=== PATIENT | male | born 1980 | race Caucasian/White ===

== ENCOUNTER 2018-04-06 15:39 | Emergency (ER) | payer MEDICAID, SELFPAY ==
[2018-04-06 15:39] VITALS: BP 166/90; PULSE 104; RESP 16; TEMP 37.7; O2SAT 97; BMI 34.4
[2018-04-06] MEDS: 0.9% Normal Saline 1,000 ML 1000 ML IV (16:04)
[2018-04-06 16:15] LABS: Absolute Lymphocyte Count 2.24 X10^3/ul (0.83-4.51); Basophil# 0.02 X10^3/uL; Basophil% 0.2 % (0-1); Eosinophil# 0.06 X10^3/uL; Eosinophils% 0.5 % (0-5); Hematocrit 43.4 % (40-54); Hemoglobin 14.2 g/dl (13.0-16.5); Lymphocyte # 2.24 X10^3/ul (4.0); Lymphocyte % 20.3 % (19-41); Mean Corp Hgb Conc 32.7 g/gl (32-36); Mean Corpuscular Hgb 28.2 pg (27.0-32.0); Mean Corpuscular Volume 86.1 fL (80-94); Mean Platelet Vol. 10.8 fl (6.2-12.0); Monocyte# 0.74 X10^3/uL; Monocyte% 6.7 % (0-10); Neutrophil # 7.95 X10^3/uL (2.7-7.7); Platelet Count 256 K/mm3 (150-450); RBC Distribution Width CV 12.9 % (11.6-14.6); RBC Distribution Width SD 40.2 fl (35.1-43.9); Red Blood Count 5.04 M/mm3 (4.6-6.2)
[2018-04-06 16:16] LABS: POSITIVE COUNT NO; POSITIVE DIFFERENTIAL NO; POSITIVE MORPHOLOGY NO
[2018-04-06 16:39] LABS: AST(SGOT) 15 U/L (15-37); Alanine Aminotransfer ALT/SGPT 32 U/L (16-61); Albumin, Serum 3.9 g/dL (3.2-5.0); Alkaline Phosphatase 106 U/L (45-117); Anion Gap 10 (5-15); BUN 11 mg/dL (7-18); BUN/Creat Ratio 11.2 RATIO (10-20); Bilirubin, Direct 0.07 mg/dL (0.00-0.30); Calcium,Total 8.5 mg/dL (8.5-10.1); Chloride 109 mmol/L (98-107); Creatinine, Serum 0.98 mg/dL (0.70-1.30); EST Glomerular Filtration Rate 91 mL/min (>60); Est Glom Filt Rate - Afr Amer 110 mL/min (>60); Estimated Creatinine Clearance 96.49 ml/min; Glucose 110 mg/dL (74-106); Lipase 102 U/L (73-393); Potassium 3.7 mmol/L (3.5-5.1); Protein, Total 7.9 g/dL (6.4-8.2); Sodium Level 143 mmol/L (136-145); Thyroid Stim Hormone (TSH) 0.94 uIU/mL (0.358-3.74)
[2018-04-06] MEDS: hydrOXYzine PAM 25 MG Capsule 50 MG PO (17:02)
--- NOTE | 2018-04-06 17:24 | ED.DCSUM_ITS ---
- ER Visit Summary Date of Service: 04/06/18 Chief Complaint: Burning on left side History of Present Illness: The patient is a [address] Ng. He reports that for the past 2 months he has been having episodes where the left side of his chest and abdomen burn. States that this began again approximately 2 hours ago while he was undergoing light activity. Reports he feels mildly short of breath. He reports that left side of his face feels flushed as well. Patient reports that this is not related to exertion. The worst episode of this came after he had been playing volleyball and was at rest. He denies any exertional chest pain. Patient reports his abdominal pain is 5 out of 10 severity. He has had one episode of diarrhea. No nausea, vomiting. No fever or chills. No cough. Physical Examination: Vitals: Stable. Afebrile. General: Well-nourished and well-developed. Head: Normocephalic atraumatic. Neck: Supple, no lymphadenopathy. No JVD. Nontender. Cardiovascular: Regular rate and rhythm. No murmurs. Respiratory: No respiratory distress. Clear to auscultation bilaterally. Abdominal: Soft, nontender, nondistended, normal bowel sounds. No guarding, rebound, or peritoneal signs. Back: Nontender. Extremities: Nontender, no edema. Skin: Normal color, no rash. Neurologic: Alert and oriented ?3. Cranial nerves II through XII are intact. Normal strength and sensation. Psych: Normal affect. Test Results: EKG is sinus at 76 no acute changes. Troponins negative. LFTs are normal. Lipase normal. Chem-7 is more for chloride 109 and glucose 110. CBC is more for segment neutrophils 70. TSH 0.94. Chest x-ray is normal. Emergency Department Course and Treatment: Patient was treated with Vistaril. He is resting comfortably. Treatment Plan: This time I do not have an expiration for the patient's symptoms. However, I feel that he is a suitable candidate for further outpatient evaluation. He will be discharged instructions follow-up his primary care physician within the next week for further evaluation. Return to the emergency department for any worsening symptoms. Disposition: To home in improved and stable condition. Impression: 1. Atypical chest pain. This note was generated with [employer] software. It may contain incorrect words, spelling, and punctuation that were not noted in review of the chart prior to signing ED Disposition - Plan for ED Patient: Disposition: Home or Assisted Living Chief Complaint: General Illness Instructions: ED Chest Pain Atypical Unkn Cause Referrals: Francisco Ng MD [Primary Care Provider] - 3-5 Days if not improving
== END 2018-04-06 17:39 | disposition home or self-care (01) ==
LOC: ED 16:16
PROVIDERS: Emergency Provider Emergency Medicine; Family Provider Family Medicine; PCP Family Medicine
DX: R07.89 Other chest pain (principal)
CPT/HCPCS: 71045; 80048; 80076; 83690; 84443; 84484; 85025; 93005; 99283; J7030; A4216